=== PATIENT | female | born 2000 | race Two or more races ===

== ENCOUNTER 2024-10-16 14:00 | Emergency (ER) | payer OTHER ==
[~2024-10-16] VITALS: Ht 170.2 cm; Wt 76.0 kg
[2024-10-16 14:18] VITALS: BP 98/61; PULSE 96; RESP 16; O2SAT 96
--- NOTE | 2024-10-16 15:25 | ED.PDOC ---
ELECTRICIAN OFFICE HPI Comments 24 y.o female presents to the ED for a chief complaint of vaginal bleeding associated with lower abdominal pain that started this morning. Patient is currently 3 months gestation with a gynecological history of . Patient reports this morning while using the restroom, she noticed heavy bleeding described as her previous menstrual cycles with cramping abdominal pain. Patient mentions one episode of bleeding only, since has been using the restroom and has no bleeding or pain. Patient denies any fever, chills, nausea, vomiting, or recent trauma. No medical, surgical history or allergies reported. Chief Complaint: Vaginal Bleed Time Seen by MD: 15:16 Reviewed Notes: Nurses Notes, Medications, Allergies Allergies: Coded Allergies: NO KNOWN ALLERGIES (Unverified , 10/16/24) Information Source: Patient Mode of Arrival: Ambulatory Timing: Hours Severity: Moderate Vaginal Discharge: None Vaginal Lesions: None Bleeding Quality: Dark Vaginal Mass: None Onset Of Mass/Bleeding: Spontaneous Sexual Activity: Last Consensual [place]: Unknown Control: None History of: Current Associated Signs and Symptoms: Vaginal Bleeding, Abdominal Pain Past Medical History PAST MEDICAL HISTORY: Denies Surgical History (Other): facial 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: No 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 Family History Family History: Reviewed,noncontributory to illness Social History Smoker: Non-Smoker Alcohol: Denies ETOH Use Drugs: Denies Drug Use Lives In: Home Constitutional: denies: chills, diaphoresis, fatigue, fever, malaise, sweats, weakness, others EENTM: denies: blurred vision, double vision, ear bleeding, ear discharge, ear drainage, ear pain, ear ringing, eye pain, eye redness, hearing loss, mouth pain, mouth swelling, nasal discharge, nose bleeding, nose congestion, nose pain, photophobia, tearing, throat pain, throat swelling, voice changes, others Respiratory: denies: cough, hemoptysis, orthopnea, SOB at rest, shortness of breath, SOB with excertion, stridor, wheezing, others Cardiovascular: denies: chest pain, dizzy spells, diaphoresis, Dyspnea on exertion, edema, irregular heart beat, left arm pain, lightheadedness, palpitations, PND, syncope, others Gastrointestinal: reports: abdominal pain; denies: abdomen distended, blood streaked bowels, constipated, diarrhea, dysphagia, difficulty swallowing, hematemesis, melena, nausea, poor appetite, poor fluid intake, rectal bleeding, rectal pain, vomiting, others Genitourinary: reports: abnormal vagina bleeding, ; denies: burning, dyspareunia, dysuria, flank pain, frequency, hematuria, incontinence, pain, vag kayla discharge, urgency, others Neurological: denies: dizziness, fainting, headache, left sided numbness, left sided weakness, numbness, paresthesia, pre-existing deficit, right sided numbness, right sided weakness, seizure, speech problems, tingling, tremors, weakness, others Musculoskeletal: denies: back pain, gout, joint pain, joint swelling, muscle pain, muscle stiffness, neck pain, others Integumetry: denies: bruises, change in color, change in hair/nails, dryness, laceration, lesions, lumps, rash, wounds, others Allergic/Immunocompromised: denies: Difficulty Healing, Frequent Infections, Hives, Itching, others Hematologic/Lymphatic: denies: anemia, blood clots, easy bleeding, easy bruising, swollen glands, others Endocrine: denies: excessive hunger, excessive sweating, excessive thirst, excessive urination, flushing, intolerance to cold, intolerance to heat, unexplained weight gain, unexplained weight loss, others Psychiatric: denies: anxiety, bipolar disorder, depression, hopeless, panic disorder, schizophrenia, sleepless, suicidal, others All Other Systems: Reviewed and Negative Physical Exam General Appearance: No Apparent Distress HEENT: Normal ENT Inspection, Pharynx Normal, TMs Normal Neck: Full Range of Motion, Non-Tender, Normal, Normal Inspection Respiratory: Chest Non-Tender, Lungs Clear, No Accessory Muscle Use, No Respiratory Distress, Normal Breath Sounds Cardiovascular: No Edema, No JVD, No Murmur, No Gallop, Normal Peripheral Pulses, Regular Rate/Rhythm Breast Exam: Deferred Gastrointestinal: No Organomegaly, Non Tender, No Pulsatile Mass, Normal Bowel Sounds, Soft Genitalia: Deferred Pelvic: Deferred Rectal: Deferred Extremities: No calf tenderness, Normal capillary refill, Normal inspection, Normal range of motion, Non-tender, No pedal edema Musculoskeletal : Apperance: Normal Neurologic: Alert, bed manager II-XII nml as Tested, No Motor Deficits, Normal Affect, Normal Mood, No Sensory Deficits Cerebellar Function: Normal Reflexes: Normal Skin: Dry, Normal Color, Warm Lymphatic: No Adenopathy Was a procedure done? Was a procedure done?: No Differential Diagnosis (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) Vaginal Bleeding: - Incomplete, - Inevitable, - Missed, - Threatened, Blood Loss Anemia, Ectopic X-Ray, Labs, Meds, VS Vital Signs Date Time Temp Pulse Resp B/P (MAP) Pulse Ox O2 Delivery O2 Flow Rate FiO2 10/16/24 14:18 97.5 96 16 98/61 (73) 96 Lab Test 10/16/24 14:00 Range/Units Urine Color Yellow Yellow Urine Clarity Ex.turbid Clear Urine pH 6.5 5.0-9.0 Urine Specific Harmony 1.026 1.001-1.035 Urine Protein 1+ H Negative Urine Ketones Negative Negative Urine Blood Negative Negative /uL Urine Nitrite Negative Negative Urine Bilirubin Negative Negative Urine Urobilinogen Normal Negative mg/dL Urine Leukocyte Esterase 2+ Negative /uL Urine RBC 6 0 - 4 /hpf Urine WBC 15 0 - 5 /hpf Urine Squamous Epithelial Cells Many <5 /hpf Urine Amorphous Crystals Few None Seen /hpf Urine Bacteria Few H None Seen /hpf Urine Hyaline Casts Few 0 - 2 /lpf Urine Mucus Few None Seen Urine Glucose Normal Normal mg/dL The urine test is positive for UTI An ultrasound of the pelvis shows: IMPRESSION: 1. IUP single live fetus 13 weeks 1 day AUA corresponding to an ANDREZ of 04/22/2025. 2. Subchorionic hemorrhage measuring up to 2.8 cm. 3. Low-lying placenta with questionable placenta previa. Recommend maternal medicine referral and short-term interval sonographic follow-up to assess for placental trophotropism. HS:Y At this time, the patient was discharged and will follow up with the primary care doctor The patient will return to the emergency department's the condition worsens. Images Reviewed?: Images reviewed and evaluated by me Time of 1ST Reevaluation: 15:18 Reevaluation 1ST: Unchanged Patient Education/Counseling: Diagnosis, Treatment, Prognosis, Need For Follow Up Family Education/Counseling: No Family Present Departure 1 Departure Time of Disposition: 17:29 Impression: Primary Impression: UTI in Qualified Codes: O23.40 - Unspecified infection of urinary tract in , unspecified trimester Additional Impression: Threatened Disposition: 01 HOME / SELF CARE / HOMELESS Condition: Fair Discharged With: Self Critical Care Note Critical Care Time?: No Stability Stability form required: No I personally scribed for CHRIS WALTON MD ([email or web address]) on 10/16/24 at 15:25. Electronically submitted by Olya Avendano ([facility]). CHRIS WALTON MD Oct 16, 2024 15:25
[2024-10-16 15:50] LABS: Urine Amorphous Crystal FEW /hpf (None Seen); Urine Bacteria FEW /hpf (None Seen); Urine Blood Negative /uL (Negative); Urine Clarity Ex.Turbid (Clear); Urine Color Yellow (Yellow); Urine Hyaline Cast FEW /lpf (0 - 2); Urine Mucus FEW (None Seen); Urine Protein, UAD 1+ (Negative); Urine Specific Gravity 1.026 (1.001-1.035); Urine Urobilinogen Normal (Negative); Urine WBC 15 /hpf (0 - 5); Urine pH 6.5 (5.0-9.0)
--- NOTE | 2024-10-16 16:48 | DVH ---
OB ULTRASOUND <14 WEEKS: HISTORY: Vaginal pain and bleeding TECHNIQUE: Multiple real-time grayscale sonographic images of the pelvis with duplex Doppler color f low, spectral and M-mode analysis. TRANSDUCERS: Transabdominal FINDINGS: The uterus measures 10.3 x 7.1 x 11.1 cm. The cervix is not well-visualized. Right ovary measures 2.5 x 1.5 x 2.4 cm with normal Doppler color flow Left ovary nonvisualized IUP single live fetus at 13 weeks 1 day average ultrasound age based on mean crown-rump length of 6.8 cm . The gestational sac measures 6.4 cm in average diameter. heart rate detected at 163 beats per minute. Yolk sac not definitively identified, however placental formation is appreciated. The placenta is lo w lying, and questionably overlies the internal cervical os. Amniotic fluid subjectively within norm al limits. Jen-gestational space: Hypoechoic structure adjacent to the gestational sac measuring 2.8 x 1.4 x 2. 4 cm. IMPRESSION: 1. IUP single live fetus 13 weeks 1 day AUA corresponding to an ANDREZ of 04/22/2025. 2. Subchorionic hemorrhage measuring up to 2.8 cm. 3. Low-lying placenta with questionable placenta previa. Recommend maternal medicine referral a nd short-term interval sonographic follow-up to assess for placental trophotropism. HS:Y
[2024-10-16] MEDS ORDERED: NITR-87 PO (17:33)
[2024-10-16 18:10] LABS: Basophils # (auto) 0 10 ^3/uL (0-0.2); Basophils % (auto) 0.2 % (0.0-2.0); Eosinophils # (auto) 0.1 10 ^3/uL (0-0.8); Eosinophils % (auto) 0.7 % (0.0-7.0); Hematocrit 43.6 % (36.0-46.0); Hemoglobin 14.1 g/dL (12.2-16.2); Lymphocytes # (auto) 2.8 10 ^3/uL (0.4-5.4); Lymphocytes % (auto) 21.4 % (10.0-50.0); Mean Corpuscular Hemoglobin 28.7 pg (28.0-32.0); Mean Corpuscular Hgb Conc. 32.3 g/dL (32.0-36.0); Mean Corpuscular Volume 88.9 fL (80.0-100.0); Monocytes # (auto) 0.9 10 ^3/uL (0-1.3); Monocytes % (auto) 7.1 % (0.0-12.0); Neutrophils # (auto) 9.2 10 ^3/uL (1.6-8.6); Neutrophils % (auto) 70.6 % (37.0-80.0); Nucleated Red Blood Cells % 0.1 %; Platelet Count (auto) 333 10^3/uL (140-450); Red Blood Cells 4.91 10^6/uL (4.0-5.20); Red Cell Distribution Width 13.7 % (11.8-14.3); White Blood Cell 13.1 10^3/uL (4.4-10.8)
== END 2024-10-16 17:29 | disposition home or self-care (01) ==
LOC: ER 14:00
DX: R10.30 Lower abdominal pain, unspecified (principal); O23.41 Unspecified infection of urinary tract in pregnancy, first trimester; O20.0 Threatened abortion; Z3A.13 13 weeks gestation of pregnancy; Z98.890 Other specified postprocedural states
CPT/HCPCS: 36415; 76801; 81001; 84702; 85025

== ENCOUNTER 2025-03-04 11:57 | Observation (INO) | payer OTHER ==
[~2025-03-04] VITALS: Ht 170.2 cm; Wt 86.4 kg
[~2025-03-04 11:57] MED LIST: NITR-87 PO
[2025-03-04 12:05] VITALS: BP 124/86; PULSE 93; RESP 18; TEMP 97.4; O2SAT 97
--- NOTE | 2025-03-04 12:15 | ED.PDOC ---
History of Present Illness HPI Comments 24F presents to the ER w/ prior SHx of Facial Sx and the c/c of ABD pain. Pt reports n being 8 months , being due on April 24, and currently having sharp lower ABD pain since this morning. Pt notes that she did emesis last night. Pain type of a 6/10. Denies chills, fever, N/V/D, SOB, CP and vaginal bleeding. Social Hx of marijuana use, but denies alcohol and substance use. No other associated symptoms, modifiers, recent injuries or sick contacts present at this time. 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: No Pertinent JEWEL BEARING BROACHER History Family History Family History: Reviewed,noncontributory to illness Social History Smoker: Non-Smoker Alcohol: Denies ETOH Use Drugs: Marijuana Lives In: Home Constitutional: denies: chills, diaphoresis, fatigue, fever, malaise, sweats, weakness, others EENTM: denies: blurred vision, double vision, ear bleeding, ear discharge, ear drainage, ear pain, ear ringing, eye pain, eye redness, hearing loss, mouth pain, mouth swelling, nasal discharge, nose bleeding, nose congestion, nose pain, photophobia, tearing, throat pain, throat swelling, voice changes, others Respiratory: denies: cough, hemoptysis, orthopnea, SOB at rest, shortness of breath, SOB with excertion, stridor, wheezing, others Cardiovascular: denies: chest pain, dizzy spells, diaphoresis, Dyspnea on exertion, edema, irregular heart beat, left arm pain, lightheadedness, palpitations, PND, syncope, others Gastrointestinal: reports: abdominal pain, vomiting; denies: abdomen distended, blood streaked bowels, constipated, diarrhea, dysphagia, difficulty swallowing, hematemesis, melena, nausea, poor appetite, poor fluid intake, rectal bleeding, rectal pain, others Genitourinary: reports: ; denies: abnormal vagina bleeding, burning, dyspareunia, dysuria, flank pain, frequency, hematuria, incontinence, pain, vagina discharge, urgency, others Neurological: denies: dizziness, fainting, headache, left sided numbness, left sided weakness, numbness, paresthesia, pre-existing deficit, right sided numbness, right sided weakness, seizure, speech problems, tingling, tremors, weakness, others Musculoskeletal: denies: back pain, gout, joint pain, joint swelling, muscle pain, muscle stiffness, neck pain, others Integumetry: denies: bruises, change in color, change in hair/nails, dryness, laceration, lesions, lumps, rash, wounds, others Allergic/Immunocompromised: denies: Difficulty Healing, Frequent Infections, Hives, Itching, others Hematologic/Lymphatic: denies: anemia, blood clots, easy bleeding, easy bruising, swollen glands, others Endocrine: denies: excessive hunger, excessive sweating, excessive thirst, excessive urination, flushing, intolerance to cold, intolerance to heat, unexplained weight gain, unexplained weight loss, others Psychiatric: denies: anxiety, bipolar disorder, depression, hopeless, panic disorder, schizophrenia, sleepless, suicidal, others All Other Systems: Reviewed and Negative Physical Exam General Appearance: No Apparent Distress HEENT: Normal ENT Inspection, Pharynx Normal, TMs Normal Neck: Full Range of Motion, Non-Tender, Normal, Normal Inspection Respiratory: Chest Non-Tender, Lungs Clear, No Accessory Muscle Use, No Respiratory Distress, Normal Breath Sounds Cardiovascular: No Edema, No JVD, No Murmur, No Gallop, Normal Peripheral Pulses, Regular Rate/Rhythm Breast Exam: Deferred Gastrointestinal: No Organomegaly, No Pulsatile Mass, Normal Bowel Sounds, Tenderness (Gravid uterus) Genitalia: Deferred Pelvic: Deferred Rectal: Deferred Extremities: No calf tenderness, Normal capillary refill, Normal inspection, Normal range of motion, Non-tender, No pedal edema Musculoskeletal : Apperance: Normal Neurologic: Alert, embedded firmware engineer II-XII nml as Tested, No Motor Deficits, Normal Affect, Normal Mood, No Sensory Deficits Cerebellar Function: Normal Reflexes: Normal Skin: Dry, Normal Color, Warm Lymphatic: No Adenopathy Was a procedure done? Was a procedure done?: No Differential Dx Considerations may include: Threatened , abdominal pain in X-Ray, Labs, Meds, VS The patient is being discharged to labor and delivery Images Reviewed?: Images reviewed and evaluated by me Time of 1ST Reevaluation: 12:30 Reevaluation 1ST: Unchanged Patient Education/Counseling: Diagnosis, Treatment, Prognosis Family Education/Counseling: No Family Present Departure 1 Departure Time of Disposition: 12:20 Impression: Primary Impression: Abdominal pain in Qualified Codes: O26.893 - Other specified related conditions, third trimester; R10.9 - Unspecified abdominal pain Disposition: 01 HOME / SELF CARE / HOMELESS Condition: Fair Discharged With: Self Critical Care Note Critical Care Time?: No Stability Stability form required: No Heart Score Heart Score: Heart Score Response (Comments) Value History N/A 0 EKG N/A 0 Age N/A 0 Risk Factors N/A 0 Troponin N/A 0 Total 0 I personally scribed for CHRIS WALTON MD ([email or web address]) on 03/04/25 at 12:15. Electronically submitted by Anurag Carreon ([email or web address]). CHRIS WALTON MD March 04, 2025 12:15
--- NOTE | 2025-03-04 13:40 | DVH ---
LIMITED OB ULTRASOUND > 14 WKS: HISTORY: Abdominal pain. TECHNIQUE: Multiple real-time grayscale images of the gravid uterus with duplex Doppler color flow an d M-mode spectral analysis. Limited examination was performed. No measurements were obtained. COMPARISON: Prior ultrasound dated 10/16/2024. FINDINGS: IUP single live fetus in breech position with heart rate of 140 beats per minute. TRINH 12.5 cm Cervix appears closed and measures 3.86 cm in length. Grade 3 placenta without previa or abruption, in anterior position. IMPRESSION: 1. IUP single live fetus in breech position. 2. Cervix appears closed and measures 3.86 cm in length. 3. Anterior placenta with no evidence of placenta previa or abruption.
--- NOTE | 2025-03-04 13:45 | DVH ---
INDICATION: abd pain TECHNIQUE: Multiple real-time sonographic images were obtained of the right upper quadrant. COMPARISON: None FINDINGS: The liver demonstrates homogeneous echotexture without focal mass lesions. The liver measu res 15.1 cm. There is no intrahepatic or extrahepatic ductal dilatation. The common duct measures 0.4 cm. The gallbladder is without evidence of stone or sludge. The gallbladder wall measures 0.2 cm and is within normal limits. The right kidney measures 11.4 cm. The right kidney is normal in contour, size, and shape. The echo genicity is normal. There is no hydronephrosis. The pancreas is not well visualized due to overlying bowel gas. IMPRESSION: 1. Unremarkable right upper quadrant sonogram.
--- NOTE | 2025-03-04 15:27 | DVH ---
INDICATION: R/O KIDNEY STONES TECHNIQUE: Multiple real-time sonographic images of the kidneys and bladder were obtained. COMPARISON: None FINDINGS: The right kidney measures 10.8 cm in length. The right renal echogenicity, contour and cortical thick ness are within normal limits. No hydronephrosis or large masses/calculi are seen. The left kidney measures 10.7 cm in length. The left renal echogenicity, contour, and cortical thickn ess are within normal limits. No hydronephrosis or large masses/calculi are seen. The bladder is not seen and likely decompressed. IMPRESSION: 1. Unremarkable examination.
--- NOTE | 2025-03-05 06:28 | DVHDS2 ---
Discharge Summary Date of Admission March 04, 2025 at 12:17 Date of Discharge: March 04, 2025 Admitting Diagnosis abd pain 32 weeks Brief Hx & Hospital Course: abd pain 32 weeks Consults/Reason for consult none Operations or Procedures none Condition at Discharge: Good Final Diagnosis/Problems List reasuring FHT no Gall stones no renal calc Discharge Disposition: Home Discharge Instruct/Medications Diet: Regular Activity: No Restrictions, As Tolerated Discharge Statement: "Patient was advised to return to the ER or call 911 if any headaches, dizziness, shortness of breath, chest pain, abdominal pain, bleeding, fevers, or worsening of medical condition. Patient was counseled about treatment plan, medications, possible side effects, patientverbalized understanding. All questions were answered to the best of my ability. This discharge took greater then 30 minutes in planning, reviewing documentation, counseling the patient, and discussing with other team members." ASSESSMENT ASSESSMENT Assessment Visit Coding OBGYN Date of Service: March 04, 2025 Billing Provider: SJ WEBB DO [employer] Common Visit Codes: 31443-WFU/OBS SAME DATE (LOW), 86799-QNL/OBS SAME DATE (MOD), 48149-OZH/OBS SAME DATE (HIGH) [employer] Procedure Codes: 14975-99- NON-STRESS TEST SJ WEBB DO March 05, 2025 06:28
== END 2025-03-04 15:34 | disposition home or self-care (01) ==
LOC: ER 11:57 → LDRP 12:10
PROVIDERS: ADMIT Obstetrics & Gynecology; ATTEND Obstetrics & Gynecology
DX: O26.893 Other specified pregnancy related conditions, third trimester (principal); R10.30 Lower abdominal pain, unspecified; O21.2 Late vomiting of pregnancy; O99.113 Other diseases of the blood and blood-forming organs and certain disorders involving the immune mechanism complicating pregnancy, third trimester; D84.9 Immunodeficiency, unspecified; Z3A.32 32 weeks gestation of pregnancy; Z98.890 Other specified postprocedural states; Z79.899 Other long term (current) drug therapy
CPT/HCPCS: 59025; 76705; 76775; 76815; 76817; 81002; 94760; 99284; G0378

== ENCOUNTER 2025-03-09 13:47 | Emergency (ER) | payer OTHER ==
[~2025-03-09] VITALS: Ht 170.2 cm; Wt 87.0 kg
[2025-03-09 13:59] VITALS: BP 99/61; PULSE 96; RESP 18; TEMP 98.2; O2SAT 98
--- NOTE | 2025-03-09 14:00 | ED.PDOC ---
History of Present Illness HPI Comments 24F presents to the ER w/ prior SHx of Facial Sx and the c/c of ABN Vag Bleeding. Pt reports on being 34 weeks and having red/brown color in the urine. Pt denies on having a OBGYN. Family Hx of Gallstones. Denies chills, fever, N/V/D, SOB, CP or other associated symptom's, modifiers, or recent injur ies or sick contact at this time. Time Seen by MD: 13:50 Primary Care Provider: DENIES OB Reviewed Notes: Nurses Notes, Medications, Allergies Allergies: Coded Allergies: NO KNOWN ALLERGIES (Unverified , 10/16/24) Home Meds Active Scripts Nitrofurantoin Monohydrate Mac (Macrobid) 100 Mg Cap, 100 MG PO BID for 5 Days, #10 CAP Prov:CHRIS WALTON MD 10/16/24 Information Source: Patient Mode of Arrival: Ambulatory Severity: Moderate Timing: Hours Duration: Since onset, Hours Prehospital treatment: None Past Medical History PAST MEDICAL HISTORY: Denies Surgical History (Other): Facial Sx CORE BAKER History: No Pertinent CORE BAKER History Family History Family History: Reviewed,noncontributory to illness, Unknown Social History Smoker: Non-Smoker Alcohol: Denies ETOH Use Drugs: Denies Drug Use Lives In: Home Constitutional: denies: chills, diaphoresis, fatigue, fever, malaise, sweats, weakness, others EENTM: denies: blurred vision, double vision, ear bleeding, ear discharge, ear drainage, ear pain, ear ringing, eye pain, eye redness, hearing loss, mouth pain, mouth swelling, nasal discharge, nose bleeding, nose congestion, nose pain, photophobia, tearing, throat pain, throat swelling, voice changes, others Respiratory: denies: cough, hemoptysis, orthopnea, SOB at rest, shortness of breath, SOB with excertion, stridor, wheezing, others Cardiovascular: denies: chest pain, dizzy spells, diaphoresis, Dyspnea on exertion, edema, irregular heart beat, left arm pain, lightheadedness, palpitations, PND, syncope, others Gastrointestinal: reports: others (Gravid uterus); denies: abdomen distended, abdominal pain, blood streaked bowels, constipated, diarrhea, dysphagia, difficulty swallowing, hematemesis, melena, nausea, poor appetite, poor fluid intake, rectal bleeding, rectal pain, vomiting Genitourinary: reports: abnormal vagina bleeding, ; denies: burning, dyspareunia, dysuria, flank pain, frequency, hematuria, incontinence, pain, vagina discharge, urgency, others Neurological: denies: dizziness, fainting, headache, left sided numbness, left sided weakness, numbness, paresthesia, pre-existing deficit, right sided numbness, right sided weakness, seizure, speech problems, tingling, tremors, weakness, others Musculoskeletal: denies: back pain, gout, joint pain, joint swelling, muscle pain, muscle stiffness, neck pain, others Integumetry: denies: bruises, change in color, change in hair/nails, dryness, laceration, lesions, lumps, rash, wounds, others Allergic/Immunocompromised: denies: Difficulty Healing, Frequent Infections, Hives, Itching, others Hematologic/Lymphatic: denies: anemia, blood clots, easy bleeding, easy bruising, swollen glands, others Endocrine: denies: excessive hunger, excessive sweating, excessive thirst, excessive urination, flushing, intolerance to cold, intolerance to heat, unexplained weight gain, unexplained weight loss, others Psychiatric: denies: anxiety, bipolar disorder, depression, hopeless, panic disorder, schizophrenia, sleepless, suicidal, others All Other Systems: Reviewed and Negative Physical Exam General Appearance: No Apparent Distress HEENT: Normal ENT Inspection, Pharynx Normal, TMs Normal Neck: Full Range of Motion, Non-Tender, Normal, Normal Inspection Respiratory: Chest Non-Tender, Lungs Clear, No Accessory Muscle Use, No Respiratory Distress, Normal Breath Sounds Cardiovascular: No Edema, No JVD, No Murmur, No Gallop, Normal Peripheral Pulses, Regular Rate/Rhythm Breast Exam: Deferred Gastrointestinal: No Organomegaly, Non Tender, No Pulsatile Mass, Normal Bowel Sounds, Soft Genitalia: Deferred Pelvic: Deferred Rectal: Deferred Extremities: No calf tenderness, Normal capillary refill, Normal inspection, Normal range of motion, Non-tender, No pedal edema Musculoskeletal : Apperance: Normal Neurologic: Alert, public health advisor II-XII nml as Tested, No Motor Deficits, Normal Affect, Normal Mood, No Sensory Deficits Cerebellar Function: Normal Reflexes: Normal Skin: Dry, Normal Color, Warm Lymphatic: No Adenopathy Was a procedure done? Was a procedure done?: No Differential Dx Considerations may include: Generalized weakness X-Ray, Labs, Meds, VS Vital Signs Date Time Temp Pulse Resp B/P (MAP) Pulse Ox O2 Delivery O2 Flow Rate FiO2 03/09/25 13:59 98.2 96 18 99/61 (74) 98 98.2 The patient is being discharged The patient will follow up with the primary care doctor The patient is being discharged to labor and delivery for further monitoring The patient has been cleared from the emergency department's at this time. Time of 1ST Reevaluation: 14:20 Reevaluation 1ST: Unchanged Patient Education/Counseling: Diagnosis, Treatment, Prognosis, Need For Follow Up Family Education/Counseling: No Family Present Departure 1 Departure Time of Disposition: 14:13 Impression: Primary Impression: Abdominal pain in Qualified Codes: O26.893 - Other specified related conditions, third trimester; R10.9 - Unspecified abdominal pain Disposition: 01 HOME / SELF CARE / HOMELESS Condition: Fair Discharged With: Self Critical Care Note Critical Care Time?: No Stability Stability form required: No Heart Score Heart Score: Heart Score Response (Comments) Value History N/A 0 EKG N/A 0 Age N/A 0 Risk Factors N/A 0 Troponin N/A 0 Total 0 I personally scribed for CHRIS WALTON MD ([email or web address]) on 03/09/25 at 14:00. Electronically submitted by Anurag Carreon ([email or web address]). CHRIS WALTON MD March 09, 2025 14:00
--- NOTE | 2025-03-09 15:03 | DVHDS2 ---
Physician Discharge Progress N Final Diagnosis: VAG BLEEDING NO CARE UTI Operations or Procedures: Operations or Procedures NST REACTIVE REVIEWED,SONO MACROBID 100MG BIDX7D Condition on Discharge: Good Disposition: Home Discharge Instructions: Diet: Regular Activity: No Restrictions, As Tolerated Medications: MACROBID Follow Up Care: Specialist: 3 D WITH OB Discharge Statement: "Patient was advised to return to the ER or call 911 if any headaches, dizziness, shortness of breath, chest pain, abdominal pain, bleeding, fevers, or worsening of medical condition. Patient was counseled about treatment plan, medications, possible side effects, patientverbalized understanding. All questions were answered to the best of my ability. This discharge took greater then 30 minutes in planning, reviewing documentation, counseling the patient, and discussing with other team members." Visit Coding OBGYN Date of Service: March 09, 2025 Billing Provider: ARTEMIO RUSH DO FAMILY MEDICINE RESIDENT Common Visit Codes: [id number] OBS CARE (HIGH) FAMILY MEDICINE RESIDENT Procedure Codes: 64831-29- NON-STRESS TEST ARTEMIO RUSH DO March 09, 2025 15:03
--- NOTE | 2025-03-09 15:31 | DVH ---
OB ULTRASOUND, LIMITED CLINICAL INDICATION: No PNC and vaginal bleeding TECHNIQUE: Multiple grayscale ultrasound and M-mode images were obtained of the pelvis for evaluation of intrauterine . COMPARISON: None FINDINGS: A single living fetus is seen in presentation. Biparietal diameter: 8.44 cm (34 weeks, 0 days) Head Circumference: 11/30/2055 cm (34 weeks, 0 days) Abdomen Circumference: 30.24 cm (34 weeks, 1 days) Femur Length: 6163 cm (34 weeks, 1 days) Average Gestational Age: 34 weeks, 1 days Ultrasound ANDREZ: 04/19/2025, 34 weeks, 1 days Estimated weight: 2359 grams (+/- 353.85 grams). Placenta: Anterior. Amniotic fluid: Visibly normal. Three-vessel cord: Present. Cord insertion: Normal. heart rate: 125 beats/min. A complete anatomic survey was not performed on this exam. IMPRESSION: 1. Single intrauterine with an estimated gestational age of 34 weeks, 1 days, correspondi ng to an estimated date of delivery of 04/19/2025.
[2025-03-09] MEDS ORDERED: PREN-96 PO (15:48)
--- NOTE | 2025-03-09 16:17 | DVHDS2 ---
Physician Discharge Progress N Final Diagnosis: VAG BLEEDING NO CARE UTI Operations or Procedures: Operations or Procedures NST REACTIVE REVIEWED,SONO MACROBID 100MG BIDX7D Condition on Discharge: Good Disposition: Home Discharge Instructions: Diet: Regular Activity: No Restrictions, As Tolerated Medications: MACROBID Follow Up Care: Specialist: 1w Discharge Statement: "Patient was advised to return to the ER or call 911 if any headaches, dizziness, shortness of breath, chest pain, abdominal pain, bleeding, fevers, or worsening of medical condition. Patient was counseled about treatment plan, medications, possible side effects, patientverbalized understanding. All questions were answered to the best of my ability. This discharge took greater then 30 minutes in planning, reviewing documentation, counseling the patient, and discussing with other team members." Visit Coding OBGYN Date of Service: March 09, 2025 Billing Provider: ARTEMIO RUSH DO LAND LEASING INFORMATION CLERK Common Visit Codes: [id number] OBS CARE (HIGH) LAND LEASING INFORMATION CLERK Procedure Codes: 50976-75- NON-STRESS TEST ARTEMIO RUSH DO March 09, 2025 16:17
== END 2025-03-09 15:55 | disposition home or self-care (01) ==
LOC: ER 13:47 → LDRP 14:21 → UNDOADMOB 14:25 → LDRP 14:30 → UNDODISOB 15:55
PROVIDERS: ADMIT Obstetrics & Gynecology; ATTEND Obstetrics & Gynecology
DX: O46.93 Antepartum hemorrhage, unspecified, third trimester (principal); O99.113 Other diseases of the blood and blood-forming organs and certain disorders involving the immune mechanism complicating pregnancy, third trimester; D84.9 Immunodeficiency, unspecified; O23.43 Unspecified infection of urinary tract in pregnancy, third trimester; N39.0 Urinary tract infection, site not specified; Z3A.34 34 weeks gestation of pregnancy; Z79.899 Other long term (current) drug therapy; Z98.890 Other specified postprocedural states
CPT/HCPCS: 59025; 76805; 81002; 94760; 99284; G0378

== ENCOUNTER 2025-04-03 20:52 | Observation (INO) | payer OTHER ==
[~2025-04-03 20:52] MED LIST changes: +PREN-96 PO
[2025-04-03 21:44] LABS: Basophils # (auto) 0.1 10 ^3/uL (0-0.2); Basophils % (auto) 0.6 % (0.0-2.0); Eosinophils # (auto) 0.2 10 ^3/uL (0-0.8); Eosinophils % (auto) 1.9 % (0.0-7.0); Hematocrit 38.1 % (36.0-46.0); Hemoglobin 12.8 g/dL (12.2-16.2); Lymphocytes # (auto) 2.6 10 ^3/uL (0.4-5.4); Lymphocytes % (auto) 25.8 % (10.0-50.0); Mean Corpuscular Hemoglobin 27.9 pg (28.0-32.0); Mean Corpuscular Hgb Conc. 33.7 g/dL (32.0-36.0); Mean Corpuscular Volume 82.8 fL (80.0-100.0); Monocytes # (auto) 0.9 10 ^3/uL (0-1.3); Monocytes % (auto) 9.2 % (0.0-12.0); Neutrophils # (auto) 6.2 10 ^3/uL (1.6-8.6); Neutrophils % (auto) 62.5 % (37.0-80.0); Platelet Count (auto) 272 10^3/uL (140-450); Red Cell Distribution Width 13.7 % (11.8-14.3)
[2025-04-03 21:50] LABS: Urine Bacteria FEW /hpf (None Seen); Urine Blood Negative /uL (Negative); Urine Budding Yeast OCCASIONAL /hpf (None Seen); Urine Clarity Ex.Turbid (Clear); Urine Color Light-Orange (Yellow); Urine Mucus FEW (None Seen); Urine Protein, UAD 1+ (Negative); Urine Specific Gravity 1.031 (1.001-1.035); Urine Squamous Epithelial Cell MANY /hpf (<5); Urine Urobilinogen 4 mg/dL (Negative); Urine WBC 21 /HPF (0-5)
[2025-04-03 21:57] LABS: Protein, Urine 16.8 mg/dL (1-14)
[2025-04-03 22:01] LABS: Alanine Aminotransferase 10 U/L (7-40); Anion Gap 9 (5-15); Aspartate Aminotransferase 15 U/L (13-40); BUN/Creatinine Ratio 11.9 (10.0-20.0); Calcium 9.1 mg/dL (8.7-10.4); Carbon Dioxide 22 mmol/L (20-31); Potassium 3.5 mmol/L (3.5-5.1); Sodium 139 mmol/L (136-145); Total Protein 6.5 g/dL (5.7-8.2); Uric Acid 5.6 mg/dL (3.1-7.8)
[2025-04-03 22:02] LABS: Alkaline Phosphatase 171 U/L (46-116); Bilirubin, Total 1.1 mg/dL (0.2-1.0); Blood Urea Nitrogen 7 mg/dL (9-23); Chloride 108 mmol/L (98-107); Glucose 108 mg/dL (74-106)
[2025-04-03 22:07] LABS: Barbiturate Scree,Urine Neg (NEGATIVE); Cannabinoid Screen, Urine Pos (NEGATIVE); Opiate Scree,Urine Neg (NEGATIVE); Phencyclidine Screen, Urine Neg (NEGATIVE)
[2025-04-03 22:08] LABS: Amphetamine Screen, Urine Neg (NEGATIVE); Benzodiazephine Screen, Urine Neg (NEGATIVE); Cocaine Screen, Urine Neg (NEGATIVE); Urine Protein/Creatinine Ratio 0.07
[2025-04-03 22:09] LABS: Creatinine, Urine 243.82 mg/dL (30.0-125.0)
[2025-04-03 22:17] LABS: INR 0.92 (0.9-1.15); Partial Thromboplastin Time 29.6 SEC (24.5-34.5); Prothrombin Time 9.8 sec (9.3-11.8)
--- NOTE | 2025-04-03 23:47 | DVHDS2 ---
Physician Discharge Progress N Final Diagnosis: ruled out preeclampsia well being established Operations or Procedures: Operations or Procedures S: 24yo IUP@37.0wks presents to OB triage with c/o intermittent headache and wants to be evaluated for Preeclampsia. +FM, denies GUERRIER currently/vision changes/RUQ pain/LOF/VB/UCs. Pt has not had PNC with this , just [facility]wks [facility] [place] [facility] then OB [facility]age visits at [facility]. Pt did not get care due to insurance issues but now has [facility] and PCP has referred her to an OB, appt pending. Pt lives in [place]. Pt admits to smoking marijuana. Plans to deliver at [facility] in [place], [place]. OB hx: TAB X1, x1 uncomplicated O: VSS NST reactive GBS swab collected Laboratory Tests Test 04/03/25 21:25 04/03/25 21:27 Range/Units Urine Color Light-orange Yellow Urine Clarity Ex.turbid Clear Urine pH 6.0 5.0-9.0 Urine Specific [place] 1.031 1.001-1.035 Urine Protein 1+ H Negative Urine Ketones Trace Negative Urine Blood Negative Negative /uL Urine Nitrite Negative Negative Urine Bilirubin Negative Negative Urine Urobilinogen 4 H Negative mg/dL Urine Leukocyte Esterase 3+ Negative /uL Urine RBC <1 0 - 4 /hpf Urine Microscopic WBC 21 H 0-5 /HPF Urine Squamous Epithelial Cells Many <5 /hpf Urine Calcium Oxalate Crystals Mod None Seen Urine Bacteria Few H None Seen /hpf Urine Mucus Few None Seen Urine Yeast (Budding) Occasional None Seen /hpf Urine Creatinine 243.82 H 30.0-125.0 mg/dL Urine Protein/Creatinine Ratio 0.07 Urine Glucose Normal Normal mg/dL Urine Total Protein 16.8 H 1-14 mg/dL Urine Opiates Screen Neg NEGATIVE Urine Fentanyl Screen Neg NEGATIVE Urine Barbiturates Screen Neg NEGATIVE Urine Phencyclidine Screen Neg NEGATIVE Urine Amphetamines Screen Neg NEGATIVE Urine Benzodiazepines Screen Neg NEGATIVE Urine Cocaine Screen Neg NEGATIVE Urine Cannabinoids Screen Pos NEGATIVE White Blood Count 10.0 4.4-10.8 10^3/uL Red Blood Count 4.60 4.0-5.20 10^6/uL Hemoglobin 12.8 12.2-16.2 g/dL Hematocrit 38.1 36.0-46.0 % Mean Corpuscular Volume 82.8 80.0-100.0 fL Mean Corpuscular Hemoglobin 27.9 L 28.0-32.0 pg Mean Corpuscular Hemoglobin Concent 33.7 32.0-36.0 g/dL Red Cell Distribution Width 13.7 11.8-14.3 % Platelet Count 272 140-450 10^3/uL Mean Platelet Volume 8.4 6.9-10.8 fL Neutrophils (%) (Auto) 62.5 37.0-80.0 % Lymphocytes (%) (Auto) 25.8 10.0-50.0 % Monocytes (%) (Auto) 9.2 0.0-12.0 % Eosinophils (%) (Auto) 1.9 0.0-7.0 % Basophils (%) (Auto) 0.6 0.0-2.0 % Neutrophils # (Auto) 6.2 1.6-8.6 10 ^3/uL Lymphocytes # (Auto) 2.6 0.4-5.4 10 ^3/uL Monocytes # (Auto) 0.9 0-1.3 10 ^3/uL Eosinophils # (Auto) 0.2 0-0.8 10 ^3/uL Basophils # (Auto) 0.1 0-0.2 10 ^3/uL Nucleated Red Blood Cells 0.0 % Prothrombin Time 9.8 9.3-11.8 sec Prothrombin Time INR 0.92 0.9-1.15 Activated Partial Thromboplast Time 29.6 24.5-34.5 SEC Sodium Level 139 136-145 mmol/L Potassium Level 3.5 3.5-5.1 mmol/L Chloride Level 108 H 98-107 mmol/L Carbon Dioxide Level 22 20-31 mmol/L Anion Gap 9 5-15 Blood Urea Nitrogen 7 L 9-23 mg/dL Creatinine 0.59 0.550-1.02 mg/dL Glomerular Filtration Rate Calc 127 >90 mL/min BUN/Creatinine Ratio 11.9 10.0-20.0 Serum Glucose 108 H 74-106 mg/dL Hemoglobin A1c 5.1 <5.7 % A1C Uric Acid 5.6 3.1-7.8 mg/dL Calcium Level 9.1 8.7-10.4 mg/dL Total Bilirubin 1.1 H 0.2-1.0 mg/dL Aspartate Amino Transferase (AST) 15 13-40 U/L Alanine Aminotransferase (ALT) 10 7-40 U/L Alkaline Phosphatase 171 H 46-116 U/L Total Protein 6.5 5.7-8.2 g/dL Albumin 4.0 3.2-4.8 g/dL Treponema pallidum Antibody Non-reactive Negative Hepatitis B Surface Antigen Negative Negative Hepatitis C Antibody Negative Negative HIV (1&2) Antibody Negative Negative Rubella Antibody Positive A: 24yo IUP@37.0wks ruled out preeclampsia wellbeing established P: D/C home Instructed to stop smoking marijuana due to risks. FKC/PTL/PreE precautions reviewed Condition on Discharge: Stable Disposition: Home Discharge Instructions: Diet: Regular Activity: No Restrictions, As Tolerated Follow Up/Referral: ESTABLISH CARE IMMEDIATELY. GO TO YOUR NEAREST EMERGENCY ROOM INCASE OF AN EMERGENCY OR LABOR Medications: CONTINUE TAKING VITAMINS Follow Up Care: Specialist: f/u with primary PCP or OB Discharge Statement: "Patient was advised to return to the ER or call 911 if any headaches, dizziness, shortness of breath, chest pain, abdominal pain, bleeding, fevers, or worsening of medical condition. Patient was counseled about treatment plan, medications, possible side effects, patientverbalized understanding. All questions were answered to the best of my ability. This discharge took greater then 30 minutes in planning, reviewing documentation, counseling the patient, and discussing with other team members." Visit Coding OBGYN Date of Service: Apr 03, 2025 Billing Provider: YOLY GARRISON CNM PATENT SOLICITOR Common Visit Codes: [id number] OBS CARE (HIGH) PATENT SOLICITOR Procedure Codes: 77489-60- NON-STRESS TEST YOLY GARRISON CNM Apr 03, 2025 23:47
--- NOTE | 2025-04-03 23:52 | DVH ---
US BIOPHYSICAL PROFILE US OB LIMITED CLINICAL HISTORY: Headaches and dizziness. COMPARISON: US OB ULTRASOUND COMP GTR 14 WKS on DOS: 03/09/25 TECHNIQUE: Real-time grayscale, color flow and M-mode imaging of the gravid uterus is performed. FINDINGS: Single living intrauterine gestation. Cephalic presentation. heart rate 156 beats per minute. Average ultrasound age 36 weeks 5 days. Estimated due date 04/26/2025. Placenta is anterior, grade 3. The cervix measures approximately 3.4 cm in length and appears closed . No definite evidence of abruption or previa at this time. measurements (cm): BPD 9.1, HC 32.9, AC 32.7, FL 7.1. Estimated weight: 2987 g Amniotic fluid index: 14.5 cm Biophysical profile: 8 out of 8. (2 breathing, 2 activity, 2 tone, 2 TRINH) IMPRESSION: Single living intrauterine gestation as above. Biophysical profile score 8 out of 8.
== END 2025-04-03 23:18 | disposition home or self-care (01) ==
LOC: LDRP 20:52
PROVIDERS: ADMIT Obstetrics & Gynecology; ATTEND Obstetrics & Gynecology
DX: O26.893 Other specified pregnancy related conditions, third trimester (principal); R51.9 Headache, unspecified; R79.1 Abnormal coagulation profile; F17.200 Nicotine dependence, unspecified, uncomplicated; Z3A.37 37 weeks gestation of pregnancy; Z79.899 Other long term (current) drug therapy; Z98.890 Other specified postprocedural states
CPT/HCPCS: 36415; 59025; 76805; 76819; 80053; 80307; 81001; 82570; 83036; 84156; 84550; 85025; 85610; 85730; 86703; 86762; 86780; 86803; 86850; 86900; 86901; 87081; 87340; G0378